=== PATIENT | female | born 1930 | race Caucasian/White ===

== ENCOUNTER 2017-07-10 12:05 | Outpatient (CLI) | payer MEDICARE, BC ==
[2017-07-10 13:21] LABS: ALT (SGPT) 27 U/L (8-55); AST (SGOT) 25 U/L (5-34); Albumin 3.6 g/dL (3.4-4.8); Alkaline Phosphatase 81 U/L (40-150); Anion Gap 14 mmol/L (10-20); BUN (Urea Nitrogen) 21 mg/dL (9.8-20.1); Bilirubin, Total 0.5 mg/dL (0.2-1.2); Calc. Creatinine Clearance 0 mL/min (70-130); Calcium 9.4 mg/dL (7.8-10.44); Carbon Dioxide 26 mmol/L (23-31); Chloride 107 mmol/L (98-107); Estimated GFR-MDRD 70; Globulin 2.1 g/dL (2.4-3.5); Glucose 146 mg/dL (83-110); Potassium 3.8 mmol/L (3.5-5.1); Protein, Total 5.7 g/dL (6.0-8.3); Sodium 143 mmol/L (136-145)
== END 2017-07-10 12:06 | disposition home or self-care (01) ==
LOC: BURLAB 12:05
PROVIDERS: ATTEND Family Medicine
DX: E87.6 Hypokalemia (principal); R53.81 Other malaise
CPT/HCPCS: 36415; 80053

== ENCOUNTER 2017-07-25 21:01 | Emergency (ER) | payer MEDICARE, BC ==
[~2017-07-25 21:01] MED LIST: Iopamidol 370 76% 100 ML VIAL ONE
[2017-07-25 21:29] LABS: #Basophils 0.1 thou/uL (0.0-0.2); #Lymphocytes 1.7 thou/uL (1.20-3.40); #Neutrophils 9.9 thou/uL (1.40-6.50); %Basophils 0.7 % (0.0-1.0); %Eosinophils 0.3 % (0.0-10.0); %Lymphocytes 13.4 % (21.0-51.0); %Monocytes 8.1 % (0.0-10.0); %Neutrophils 77.6 % (42.0-75.0); Hemoglobin 13.3 g/dL (12.0-16.0); Mean Corpuscular HGB CONC 31.1 g/dL (32.0-36.0); Mean Corpuscular Hemoglobin 27.6 pg (27.0-31.0); Mean Corpuscular Volume 88.7 fl (81.0-99.0); Mean Platelet Volume 9.4 fL (7.4-10.4); Platelet Count 248 thou/uL (130-400); RBC Distribution Width 16.9 % (11.5-14.5); Red Blood Cell (RBC) Count 4.82 mill/uL (4.20-5.40); White Blood Cell (WBC) Count 12.7 thou/uL (4.8-10.8)
[2017-07-25 21:32] LABS: PTT 36.7 SEC (22.9-36.1); Prothrombin Time 12.8 SEC (12.0-14.7)
[2017-07-25 21:41] LABS: ALT (SGPT) 57 U/L (8-55); AST (SGOT) 51 U/L (5-34); Albumin 3.9 g/dL (3.4-4.8); Alkaline Phosphatase 90 U/L (40-150); Anion Gap 13 mmol/L (10-20); BUN (Urea Nitrogen) 15 mg/dL (9.8-20.1); Bilirubin, Total 0.4 mg/dL (0.2-1.2); Calc. Creatinine Clearance 0 mL/min (70-130); Calcium 9.4 mg/dL (7.8-10.44); Carbon Dioxide 26 mmol/L (23-31); Chloride 105 mmol/L (98-107); Estimated GFR-MDRD 46; Globulin 2.9 g/dL (2.4-3.5); Glucose 112 mg/dL (83-110); Potassium 3.9 mmol/L (3.5-5.1); Protein, Total 6.8 g/dL (6.0-8.3); Sodium 140 mmol/L (136-145)
[2017-07-25 21:43] LABS: CKMB 1.1 ng/mL (0-6.6); Troponin I 0.021 ng/mL (< 0.028)
--- NOTE | 2017-07-26 | RAD ---
PORTABLE CHEST 07/25/17 An AP portable chest film at 2113 shows the heart to be minimally enlarged. There are no congestive changes, pleural effusions, or lobar infiltrates. There is no sign of mediastinal mass. The trachea deviates as it crosses the dilated aorta. IMPRESSION: No acute thoracic findings. POS: HOME
--- NOTE | 2017-07-26 03:07 | CT ---
PRELIMINARY REPORT/[facility]/EMERGENCY AFTER HOURS PROCEDURE: EXAM: CT Angiography Chest With Intravenous Contrast CLINICAL HISTORY: 87 years old, female; Pain; Chest pain; On breathing; Patient HX: Pt presents to the er for chest pa in; C/O pain with inspiration, only with deep breaths. Slightly elevated d-dimer TECHNIQUE: Axial computed tomographic angiography images of the chest with intravenous contrast using pulmonary embolism protocol. All CT scans at this facility use one or more dose reduction techniques, viz.: a utomated exposure control; ma/kV adjustment per patient size (including targeted exams where dose is matched to indication; i.e. head); or iterative reconstruction technique. Coronal reformatted images were created and reviewed. CONTRAST: 70 mL of ISOVUE 370 administered intravenously. COMPARISON: No relevant prior studies available. FINDINGS: Pulmonary arteries: Evaluation of the pulmonary arteries is limited secondary to poor opacification. No filling defects are seen in the main pulmonary arteries. Aorta: Atherosclerotic vascular calcification. No thoracic aortic aneurysm. Lungs: Bilateral lower lobe subsegmental dependent atelectasis. Mild bronchiectasis is seen adjacent to the right aspect of the spine in the right lower lobe. No mass. Pleural space: No significant effusion. No pneumothorax. Heart: Coronary artery calcifications and coronary artery stents. No significant pericardial effusio n. No evidence of RV dysfunction. Bones/joints: Degenerative changes in the spine. No acute fracture. No dislocation. Soft tissues: Unremarkable. Lymph nodes: No enlarged lymph nodes. Liver: The liver is increased in density. Spleen: There is a 9 mm cyst in the spleen. IMPRESSION: Evaluation of the pulmonary arteries is limited secondary to poor opacification. No pulmonary embolism is seen in the main pulmonary arteries. Thank you for allowing us to participate in the care of your patient. Dictated and Authenticated by: Concha Tucker MD 07/25/2017 11:21 PM Central Time ([place] \T\ [place]) FINAL REPORT CT ANGIO OF THE CHEST 07/25/[address] of the chest was done for evaluation of chest pain and a slightly elevated D-dimer. Axial slices were acquired after a bolus of IV contrast, then coronal an oblique coronal reformations were done through the pulmonary arteries. Unfortunately, the timing of the bolus is off. The highest concentrations are already in the aorta, so the sensitivity of this study is very limited. No gross defects are seen in the larger pulmonary artery branches. Emboli in the medium and small branches would be missed. There is no sign of aortic aneurysm or dissection. There is just generalized ectasia of the aorta. C oronary artery calcifications and stents are seen. The heart is mildly enlarged but there is no radha cardial fluid. There is no evidence of mediastinal mass or adenopathy of significant size. The lungs show no masses or major infiltrates. Linear scarring or atelectasis is seen in the lung ba ses bilaterally. There are no effusions. Scans into the upper abdomen showed no acute changes in the visible portions. There is the beginning s of a subcentimeter cyst in the spleen. IMPRESSION: 1. Low sensitivity study due to mistiming of bolus. No gross emboli seen in the large pulmonary artery branches. 2. Coronary arteriosclerosis and mild cardiomegaly. 3. Basilar scarring or atelectasis. Report in agreement with preliminary reading by [facility]. POS: HOME
== END 2017-07-26 00:16 | disposition home or self-care (01) ==
LOC: BURERS 21:01
DX: I48.91 Unspecified atrial fibrillation (principal); I95.1 Orthostatic hypotension; I10 Essential (primary) hypertension; E03.9 Hypothyroidism, unspecified; Z79.82 Long term (current) use of aspirin; Z79.899 Other long term (current) drug therapy
CPT/HCPCS: 71010; 71275; 80053; 82553; 84443; 84484; 85025; 85379; 85610; 85730; 93005; 94760; A4216

== ENCOUNTER 2017-12-08 12:10 | Emergency (ER) | payer MEDICARE, BC ==
[2017-12-08] MEDS ORDERED: Triple Antibiotic Oint 1 GM Packet ONE (12:46)
== END 2017-12-08 12:57 | disposition short-term general hospital (02) ==
LOC: BURERS 12:10
DX: S00.01XA Abrasion of scalp, initial encounter (principal); E03.9 Hypothyroidism, unspecified; I95.1 Orthostatic hypotension; I48.91 Unspecified atrial fibrillation; Z85.828 Personal history of other malignant neoplasm of skin; Z79.82 Long term (current) use of aspirin; Z79.899 Other long term (current) drug therapy; W18.09XA Striking against other object with subsequent fall, initial encounter